=== PATIENT | female | born 1950 | race Caucasian/White ===

== ENCOUNTER 2016-07-27 05:46 | Inpatient (IN) | payer MEDICARE ==
[~2016-07-27] VITALS: Ht 154.9 cm; Wt 80.6 kg
[~2016-07-27 05:46] MED LIST: ALPR-475 PO; AMLO5TAB4 PO; GABA100C8 PO; HYDR25TA6 PO; LAMO100T PO; METO50TA82 PO; OMEP20TA62 PO; SODI1TAB PO
[2016-07-27] MEDS ORDERED: TRANEXAMIC ACID 100 MG/ML, 10ML ONE (06:27)
[2016-07-27] MEDS ORDERED: BUPIVACAINE/PF-EPI 0.5% 1:200K ONE (06:28)
[2016-07-27 07:34] VITALS: BP 123/69
[2016-07-27] MEDS ORDERED: LACTATED RINGERS 1,000 ML IV SCH (07:34)
[2016-07-27] MEDS ORDERED: VANCOMYCIN PMX 1GM/200ML 200 ML IV STA (07:48)
[2016-07-27] MEDS ORDERED: CEFAZOLIN 1,000 MG IM STA (07:48)
[2016-07-27] MEDS ORDERED: FENTANYL PF 250 MCG/5ML ONE ×2 (07:49→10:55)
[2016-07-27] MEDS ORDERED: MIDAZOLAM 1 MG/ML, 2ML ONE (07:50)
[2016-07-27] MEDS ORDERED: PROPOFOL 10 MG/ML, 20ML ONE (08:00)
[2016-07-27] MEDS ORDERED: LIDOCAINE 1%, 2ML SQ PRN (08:00)
[2016-07-27] MEDS ORDERED: NEOSTIGMINE 1 MG/ML, 10ML ONE (08:00)
[2016-07-27] MEDS ORDERED: GLYCOPYRROLATE 0.2MG/1ML ONE (08:00)
[2016-07-27] MEDS ORDERED: CEFAZOLIN 1,000 MG ONE (08:00)
[2016-07-27] MEDS ORDERED: DEXAMETHASONE 4 MG/ML, 1ML ONE (08:00)
[2016-07-27] MEDS ORDERED: ROCURONIUM 10 MG/ML ONE (08:00)
[2016-07-27] MEDS ORDERED: ONDANSETRON 2MG/ML, 2ML ONE (08:00)
[2016-07-27] MEDS ORDERED: VANCOMYCIN 1,000 MG ONE (09:36)
[2016-07-27] MEDS ORDERED: ONDANSETRON 2MG/ML, 2ML IVPush PRN (10:00)
[2016-07-27] MEDS ORDERED: FENTANYL PF 100 MCG/2ML IV PRN (10:00)
[2016-07-27] MEDS ORDERED: ACETAMINOPHEN 325 MG TABLET PO PRN (10:00)
[2016-07-27] MEDS ORDERED: OXYcodone 5 MG/5 ML ORAL.SOL UDC PO PRN (10:00)
[2016-07-27] MEDS ORDERED: LABETALOL 5MG/ML, 20ML IV PRN (10:00)
[2016-07-27] MEDS ORDERED: MEPERIDINE/PF 25MG/0.5ML IVPush PRN (10:00)
[2016-07-27] MEDS ORDERED: HYDROmorphone 2 MG/ML, 1ML ONE (10:22)
[2016-07-27] MEDS ORDERED: OXYcodone 5 MG/5 ML ORAL.SOL UDC ONE (10:22)
[2016-07-27] MEDS: HYDROmorphone 1 MG/ML, 1ML IV PRN ×4 (10:35→11:16)
[2016-07-27] MEDS ORDERED: KETOROLAC 30 MG/1 ML ONE (11:12)
[2016-07-27] MEDS ORDERED: KETOROLAC 30 MG/1 ML IVPush PRN (11:30)
[2016-07-27] MEDS ORDERED: SENNA/DOCUSATE TABLET PO PRN (12:30)
[2016-07-27] MEDS ORDERED: ONDANSETRON ODT 4 MG PO PRN ×2 (12:30→12:40)
[2016-07-27] MEDS ORDERED: ALUMINUM/MAG/SIMETHICONE 30 ML UDC PO PRN (12:30)
[2016-07-27] MEDS ORDERED: SCOPOLAMINE PATCH, 1.5MG PATCH.TD72 TD SCH ×2 (12:30→12:41)
[2016-07-27] MEDS ORDERED: DIPHENHYDRAMINE PO (12:30)
[2016-07-27] MEDS ORDERED: ONDANSETRON 2MG/ML, 2ML IV PRN ×3 (12:30→12:40)
[2016-07-27] MEDS ORDERED: BISACODYL 10 MG SUPP PR PRN (12:30)
[2016-07-27] MEDS ORDERED: KETOROLAC 30 MG/1 ML IV PRN (12:30)
[2016-07-27] MEDS ORDERED: MAGNESIUM HYDROXIDE 8%, 30ML UDC PO PRN (12:30)
[2016-07-27] MEDS ORDERED: DIAZEPAM 5 MG TABLET PO PRN (12:30)
[2016-07-27] MEDS ORDERED: ZOLPIDEM 5MG TABLET PO PRN (12:30)
[2016-07-27] MEDS ORDERED: morphine SULFATE 10 MG/ML, 1ML IV PRN (12:30)
[2016-07-27] MEDS: ACETAMINOPHEN 500 MG TABLET PO PRN (12:57)
[2016-07-27] MEDS ORDERED: PROMETHAZINE 25 MG SUPP PR PRN (13:00)
[2016-07-27] MEDS ORDERED: OXYcodone IR 5MG TABLET PO PRN (13:00)
[2016-07-27] MEDS ORDERED: TRANEXAMIC ACID 1,000 MG in SODIUM CHLORIDE 0.9% 100 ML IV ONE (13:00)
[2016-07-27] MEDS ORDERED: DEXAMETHASONE 4 MG/ML, 5ML IV PRN (13:00)
[2016-07-27 13:05] VITALS: BP 104/43
[2016-07-27] MEDS: NS + 20MEQ KCL 1,000 ML IV SCH ×2 (13:41→22:30)
[2016-07-27] MEDS: GABAPENTIN 400 MG CAPSULE PO SCH ×2 (15:12→20:52)
[2016-07-27] MEDS: OXYcodone IR 5MG TABLET PO PRN ×2 (15:50→20:52)
[2016-07-27] MEDS ORDERED: CEFAZOLIN PMX 2GM/100ML 100 ML IVPB SCH (16:00)
[2016-07-27] MEDS: METOPROLOL TARTRATE 50 MG TABLET PO SCH (18:14)
[2016-07-27 18:49] VITALS: BP 118/70
[2016-07-27] MEDS: DOCUSATE 100 MG CAPSULE PO SCH (20:52)
[2016-07-27] MEDS: SODIUM CHLORIDE FLUSH 10ML SYR IVF SCH (20:52)
[2016-07-27] MEDS ORDERED: CEFAZOLIN PMX 2GM/50ML 50 ML IVPB SCH (21:34)
[2016-07-27] MEDS: LAMOTRIGINE 100 MG TABLET PO SCH (22:39)
[2016-07-27 23:52] VITALS: BP 122/77
[2016-07-28] MEDS ORDERED: CEFAZOLIN PMX 2GM/50ML 50 ML IVPB SCH
[2016-07-28] MEDS: OXYcodone IR 5MG TABLET PO PRN ×7 (00:20→22:58)
[2016-07-28 03:50] VITALS: BP 140/79
[2016-07-28] MEDS: GABAPENTIN 400 MG CAPSULE PO SCH ×4 (05:59→23:00)
[2016-07-28] MEDS: METOPROLOL TARTRATE 50 MG TABLET PO SCH ×2 (05:59→18:00)
[2016-07-28] MEDS: ASPIRIN 325 MG TABLET EC PO SCH ×2 (05:59→22:59)
[2016-07-28 07:43] VITALS: BP 124/66
[2016-07-28] MEDS: NS + 20MEQ KCL 1,000 ML IV SCH ×2 (07:57→16:50)
[2016-07-28] MEDS: OMEPRAZOLE 20 MG CAPSULE.DR PO SCH (07:57)
[2016-07-28] MEDS: LAMOTRIGINE 100 MG TABLET PO SCH ×2 (07:58→22:58)
[2016-07-28] MEDS: DOCUSATE 100 MG CAPSULE PO SCH ×2 (07:58→22:59)
[2016-07-28] MEDS: HYDROCHLOROTHIAZIDE 25 MG TABLET PO SCH (07:58)
[2016-07-28] MEDS: SODIUM CHLORIDE 1 GM TABLET PO SCH (07:59)
[2016-07-28] MEDS: AMLODIPINE 5 MG TABLET PO SCH (07:59)
[2016-07-28] MEDS: SODIUM CHLORIDE FLUSH 10ML SYR IVF SCH ×2 (08:01→23:00)
[2016-07-28 13:18] VITALS: BP 93/53
[2016-07-28] MEDS: ACETAMINOPHEN 500 MG TABLET PO PRN ×2 (15:21→22:57)
[2016-07-28 20:53] VITALS: BP 133/72
[2016-07-29] MEDS: OXYcodone IR 5MG TABLET PO PRN ×4 (02:15→12:01)
[2016-07-29 02:20] VITALS: BP 124/70
[2016-07-29] MEDS: NS + 20MEQ KCL 1,000 ML IV SCH (04:30)
[2016-07-29] MEDS: ACETAMINOPHEN 500 MG TABLET PO PRN (06:06)
[2016-07-29] MEDS: METOPROLOL TARTRATE 50 MG TABLET PO SCH (06:06)
[2016-07-29] MEDS: GABAPENTIN 400 MG CAPSULE PO SCH ×2 (06:09→10:58)
[2016-07-29 08:00] VITALS: BP 111/57
[2016-07-29] MEDS: OMEPRAZOLE 20 MG CAPSULE.DR PO SCH (08:18)
[2016-07-29] MEDS: LAMOTRIGINE 100 MG TABLET PO SCH (08:18)
[2016-07-29] MEDS: ASPIRIN 325 MG TABLET EC PO SCH (08:18)
[2016-07-29] MEDS: SODIUM CHLORIDE FLUSH 10ML SYR IVF SCH (08:18)
[2016-07-29] MEDS: DOCUSATE 100 MG CAPSULE PO SCH (08:18)
[2016-07-29] MEDS: HYDROCHLOROTHIAZIDE 25 MG TABLET PO SCH (08:18)
[2016-07-29] MEDS: SODIUM CHLORIDE 1 GM TABLET PO SCH (08:18)
[2016-07-29] MEDS: AMLODIPINE 5 MG TABLET PO SCH (08:19)
[2016-07-29] MEDS ORDERED: CEPH-368 PO (08:33)
[2016-07-29] MEDS ORDERED: ASPI-647 PO (08:33)
[2016-07-29] MEDS ORDERED: TRAM50TA2 PO (08:34)
[2016-07-29] MEDS ORDERED: OXYC10TA6 PO (08:35)
[2016-07-29 11:45] VITALS: BP 116/53
== END 2016-07-29 14:45 | disposition home health service (06) | DRG 470 ==
LOC: ORIP 05:46 → 4NOR 11:41
PROVIDERS: ADMIT Orthopaedic Surgery Orthopaedic Surgery of the Spine; ATTEND Orthopaedic Surgery Orthopaedic Surgery of the Spine
PROC: 0SRD0J9 Replacement of Left Knee Joint with Synthetic Substitute, Cemented, Open Approach (ICD-10-PCS; principal; 2016-07-27 08:00)
DX: M17.12 Unilateral primary osteoarthritis, left knee (principal); I10 Essential (primary) hypertension; E78.5 Hyperlipidemia, unspecified; Z90.49 Acquired absence of other specified parts of digestive tract; Z90.710 Acquired absence of both cervix and uterus
CPT/HCPCS: 36415; 85025; C1713; J0690; J1100; J1170; J1885; J2250; J2405; J2704; J2710; J3010; J3370; J3480; J3490; C1776; J7120

== ENCOUNTER 2016-08-15 20:16 | Inpatient (IN) | payer MEDICARE ==
[~2016-08-15] VITALS: Ht 154.9 cm; Wt 84.5 kg
[~2016-08-15 20:16] MED LIST changes: +ASPI-647 PO; +CEPH-368 PO; +GABA-826 PO; -GABA100C8 PO; +OXYC10TA6 PO; +TRAM50TA2 PO
[2016-08-15 21:15] LABS: BLOOD UREA NITROGEN 10 mg/dL (7-18)
[2016-08-15] MEDS ORDERED: GABA800T2 PO (21:25)
[2016-08-15] MEDS ORDERED: LORA10TA3 PO (21:25)
[2016-08-15] MEDS ORDERED: ALEN70TA5 PO (21:25)
[2016-08-15] MEDS ORDERED: OXYC20TA2 PO (21:25)
[2016-08-15] MEDS ORDERED: ONDA-40 PO (21:25)
[2016-08-15] MEDS ORDERED: OMEP-110 PO (21:25)
[2016-08-15] MEDS ORDERED: ALPR2TAB2 PO (21:25)
[2016-08-15] MEDS ORDERED: ONDANSETRON 2MG/ML, 2ML IVPush ONE (21:30)
[2016-08-15] MEDS ORDERED: SODIUM CHLORIDE 0.9% 1,000ML IVBOLUS ONE (21:30)
[2016-08-15] MEDS ORDERED: VANCOMYCIN PER PHARMACY IV ONE (21:30)
[2016-08-15] MEDS ORDERED: SODIUM CHLORIDE FLUSH 10ML SYR IVF ONE (21:30)
[2016-08-15] MEDS ORDERED: CEFAZOLIN PMX 1GM/50ML 50 ML IVPB ONE (21:30)
[2016-08-15] MEDS ORDERED: MORPHINE SULFATE 4 MG/ML, 1ML IV PRN (21:30)
[2016-08-15] MEDS ORDERED: ONDANSETRON 2MG/ML, 2ML ONE (22:19)
[2016-08-15] MEDS ORDERED: CEFAZOLIN PMX 1GM/50ML 50 ML ONE (22:19)
[2016-08-15] MEDS ORDERED: MORPHINE SULFATE 4 MG/ML, 1ML ONE (22:19)
[2016-08-15] MEDS ORDERED: CLIN300C93 PO (23:03)
[2016-08-16] MEDS ORDERED: VANCOMYCIN PER PHARMACY MC PRN
[2016-08-16] MEDS ORDERED: PHARMACOKINETIC MONITORING MC PRN (00:30)
[2016-08-16 00:40] VITALS: BP 131/82
[2016-08-16] MEDS: ASPIRIN 325 MG TABLET EC PO SCH ×3 (00:55→21:34)
[2016-08-16] MEDS: VANCOMYCIN 1,600 MG in SODIUM CHLORIDE 0.9% 250 ML IV SCH (00:55)
[2016-08-16] MEDS: GABAPENTIN 400 MG CAPSULE PO SCH ×6 (00:56→21:35)
[2016-08-16] MEDS: ALPRazolam 1MG TABLET PO SCH ×6 (00:58→21:35)
[2016-08-16] MEDS: SODIUM CHLORIDE 0.9% 1,000 ML IV SCH ×2 (01:13→11:07)
[2016-08-16] MEDS ORDERED: hydrALAzine 20 MG/ML, 1ML IVPush PRN (01:30)
[2016-08-16] MEDS ORDERED: POTASSIUM CHLORIDE 20 MEQ TAB.ER.PRT PO ONE (01:30)
[2016-08-16] MEDS: [UNRECOGNIZED DRUG - REMARK] MC SCH ×2 (01:57→09:30)
[2016-08-16] MEDS: HEPARIN 5,000 UNITS/ML, 1ML SQ SCH ×3 (02:04→17:11)
[2016-08-16 03:07] VITALS: BP 96/50
[2016-08-16] MEDS: MORPHINE SULFATE 4 MG/ML, 1ML IVPush PRN ×2 (03:25→09:32)
[2016-08-16] MEDS: NS + 20MEQ KCL 1,000 ML IV SCH ×2 (05:54→17:10)
[2016-08-16] MEDS: CEFAZOLIN PMX 1GM/50ML 50 ML IV SCH ×3 (06:06→21:34)
[2016-08-16 06:57] VITALS: BP 148/68
[2016-08-16] MEDS: HYDROCHLOROTHIAZIDE 25 MG TABLET PO SCH (09:00)
[2016-08-16] MEDS: OMEPRAZOLE 20 MG CAPSULE.DR PO SCH (09:00)
[2016-08-16] MEDS: AMLODIPINE 5 MG TABLET PO SCH (09:00)
[2016-08-16] MEDS: SODIUM CHLORIDE 1 GM TABLET PO SCH (09:00)
[2016-08-16] MEDS: LORATADINE 10 MG TABLET PO SCH (09:00)
[2016-08-16 12:43] LABS: BLOOD UREA NITROGEN 6 mg/dL (7-18)
[2016-08-16] MEDS: POTASSIUM CHLORIDE 20 MEQ TAB.ER.PRT PO ONE ×2 (13:00→17:10)
[2016-08-16 14:20] VITALS: BP 123/70
[2016-08-16] MEDS ORDERED: BACITRACIN OINT 500U/GM, 15 GM TP PRN (18:00)
[2016-08-16 19:40] VITALS: BP 136/75
[2016-08-17] VITALS (7 sets, daily range): BP systolic 120–194; BP diastolic 53–92
[2016-08-17] MEDS: VANCOMYCIN 1,600 MG in SODIUM CHLORIDE 0.9% 250 ML IV SCH (00:35)
[2016-08-17] MEDS: HEPARIN 5,000 UNITS/ML, 1ML SQ SCH ×3 (02:14→17:18)
[2016-08-17] MEDS: CEFAZOLIN PMX 1GM/50ML 50 ML IV SCH ×3 (05:42→22:07)
[2016-08-17] MEDS: NS + 20MEQ KCL 1,000 ML IV SCH ×2 (05:42→17:20)
[2016-08-17] MEDS: GABAPENTIN 400 MG CAPSULE PO SCH ×4 (05:48→22:06)
[2016-08-17] MEDS: ALPRazolam 1MG TABLET PO SCH ×4 (05:48→22:06)
[2016-08-17 05:56] LABS: BLOOD UREA NITROGEN 3 mg/dL (7-18)
[2016-08-17] MEDS: ASPIRIN 325 MG TABLET EC PO SCH ×2 (07:28→22:06)
[2016-08-17] MEDS: AMLODIPINE 5 MG TABLET PO SCH (07:28)
[2016-08-17] MEDS: OMEPRAZOLE 20 MG CAPSULE.DR PO SCH (07:28)
[2016-08-17] MEDS: HYDROCHLOROTHIAZIDE 25 MG TABLET PO SCH (07:28)
[2016-08-17] MEDS: LORATADINE 10 MG TABLET PO SCH (07:28)
[2016-08-17] MEDS: SODIUM CHLORIDE 1 GM TABLET PO SCH (07:29)
[2016-08-17] MEDS: MORPHINE SULFATE 4 MG/ML, 1ML IVPush PRN ×3 (10:23→22:06)
[2016-08-17] MEDS ORDERED: BACITRACIN OINT 500U/GM, 15 GM TP PRN (10:30)
[2016-08-17] MEDS ORDERED: BISACODYL 10 MG SUPP PR PRN (12:00)
[2016-08-17] MEDS ORDERED: MIDAZOLAM 1 MG/ML, 2ML ONE (14:19)
[2016-08-17] MEDS ORDERED: FENTANYL PF 250 MCG/5ML ONE (14:19)
[2016-08-17] MEDS ORDERED: VANCOMYCIN 1,000 MG ONE (14:39)
[2016-08-17] MEDS ORDERED: TRANEXAMIC ACID 100 MG/ML, 10ML ONE (14:40)
[2016-08-17] MEDS ORDERED: BUPIVACAINE/PF-EPI 0.5% 1:200K ONE (14:40)
[2016-08-17] MEDS ORDERED: OMNIPAQUE 350 MG/ML, 100ML BOTTLE ONE (17:02)
[2016-08-17 18:13] LABS: ASPARTATE AMINO TRANSFERASE 29 U/L (15-37); BLOOD UREA NITROGEN 2 mg/dL (7-18)
[2016-08-17 18:18] LABS: IS PT STATUS REG ER OR PRE ER? NO
[2016-08-17] MEDS: ALBUTEROL/IPRATROPIUM 2.5MG/0.5MG, 3 ML NPPB SCH (20:00)
[2016-08-17] MEDS: ACETAMINOPHEN 325 MG TABLET PO PRN (20:43)
[2016-08-17] MEDS ORDERED: HEPARIN 5,000 UNITS/ML, 1ML IV ONE (21:00)
[2016-08-17] MEDS: GUAIFENESIN 100 MG/5 ML, 10ML UDC PO PRN (22:06)
[2016-08-18] MEDS: HEPARIN 25,000 UNITS/500ML PMX 500 ML IV PRN (00:27)
[2016-08-18] MEDS: VANCOMYCIN 1,600 MG in SODIUM CHLORIDE 0.9% 250 ML IV SCH (00:41)
[2016-08-18 02:57] VITALS: BP 104/62
[2016-08-18] MEDS: GUAIFENESIN 100 MG/5 ML, 10ML UDC PO PRN (05:17)
[2016-08-18] MEDS: CEFAZOLIN PMX 1GM/50ML 50 ML IV SCH ×3 (05:17→22:09)
[2016-08-18] MEDS: ALPRazolam 1MG TABLET PO SCH ×4 (05:17→20:05)
[2016-08-18] MEDS: GABAPENTIN 400 MG CAPSULE PO SCH ×4 (05:17→20:06)
[2016-08-18] MEDS: MORPHINE SULFATE 4 MG/ML, 1ML IVPush PRN ×2 (06:08→17:24)
[2016-08-18 06:15] LABS: BLOOD UREA NITROGEN 3 mg/dL (7-18)
[2016-08-18 06:30] VITALS: BP 115/68
[2016-08-18] MEDS: ALBUTEROL/IPRATROPIUM 2.5MG/0.5MG, 3 ML NPPB SCH ×4 (07:05→20:00)
[2016-08-18] MEDS: ASPIRIN 325 MG TABLET EC PO SCH ×2 (08:09→20:05)
[2016-08-18] MEDS: NS + 20MEQ KCL 1,000 ML IV SCH (08:09)
[2016-08-18] MEDS: AMLODIPINE 5 MG TABLET PO SCH (08:09)
[2016-08-18] MEDS: LORATADINE 10 MG TABLET PO SCH (08:09)
[2016-08-18] MEDS: HYDROCHLOROTHIAZIDE 25 MG TABLET PO SCH (08:09)
[2016-08-18] MEDS: SODIUM CHLORIDE 1 GM TABLET PO SCH (08:09)
[2016-08-18] MEDS: OMEPRAZOLE 20 MG CAPSULE.DR PO SCH (08:09)
[2016-08-18] MEDS ORDERED: POTASSIUM CHLORIDE 20 MEQ TAB.ER.PRT PO SCH (11:30)
[2016-08-18 12:30] VITALS: BP 125/57
[2016-08-18] MEDS ORDERED: FUROSEMIDE 20 MG/2 ML IV ONE (14:00)
[2016-08-18] MEDS: HEPARIN 5,000 UNITS/ML, 1ML IV PRN (14:47)
[2016-08-18 18:22] VITALS: BP 125/65
[2016-08-19] MEDS: ACETAMINOPHEN 325 MG TABLET PO PRN (00:04)
[2016-08-19 00:15] VITALS: BP 147/75
[2016-08-19] MEDS ORDERED: DIPHENHYDRAMINE 25 MG CAPSULE PO PRN (00:30)
[2016-08-19] MEDS ORDERED: VANCOMYCIN 1,600 MG in SODIUM CHLORIDE 0.9% 250 ML IV SCH ×2 (00:30→19:00)
[2016-08-19] MEDS: HEPARIN 25,000 UNITS/500ML PMX 500 ML IV PRN (02:15)
[2016-08-19] MEDS: GABAPENTIN 400 MG CAPSULE PO SCH ×4 (05:22→20:29)
[2016-08-19] MEDS: ALPRazolam 1MG TABLET PO SCH ×4 (05:22→20:28)
[2016-08-19] MEDS: CEFAZOLIN PMX 1GM/50ML 50 ML IV SCH ×2 (05:22→14:28)
[2016-08-19 06:18] LABS: BLOOD UREA NITROGEN 3 mg/dL (7-18)
[2016-08-19] MEDS: ALBUTEROL/IPRATROPIUM 2.5MG/0.5MG, 3 ML NPPB SCH ×4 (06:45→19:50)
[2016-08-19] MEDS ORDERED: MAGNESIUM SULFATE PMX 4GM/100M 100 ML IV ONE (07:00)
[2016-08-19 07:10] VITALS: BP 158/80
[2016-08-19] MEDS: HEPARIN 5,000 UNITS/ML, 1ML IV PRN (08:31)
[2016-08-19] MEDS: SODIUM CHLORIDE 1 GM TABLET PO SCH (08:34)
[2016-08-19] MEDS: OMEPRAZOLE 20 MG CAPSULE.DR PO SCH (08:34)
[2016-08-19] MEDS: LORATADINE 10 MG TABLET PO SCH (08:34)
[2016-08-19] MEDS: POTASSIUM CHLORIDE 20 MEQ TAB.ER.PRT PO SCH ×2 (08:34→20:29)
[2016-08-19] MEDS: AMLODIPINE 5 MG TABLET PO SCH (08:34)
[2016-08-19] MEDS: HYDROCHLOROTHIAZIDE 25 MG TABLET PO SCH (08:34)
[2016-08-19] MEDS: APIXABAN 5 MG TABLET PO SCH ×2 (11:32→22:28)
[2016-08-19] MEDS: FUROSEMIDE 40 MG TABLET PO SCH (11:33)
[2016-08-19 13:25] VITALS: BP 133/70
[2016-08-19] MEDS ORDERED: VANCOMYCIN PER PHARMACY MC PRN (13:30)
[2016-08-19] MEDS ORDERED: POTASSIUM CHLORIDE 20 MEQ TAB.ER.PRT PO ONE (14:30)
[2016-08-19] MEDS: AMOXICILLIN/CLAV 500-125MG TABLET PO SCH ×2 (15:54→22:28)
[2016-08-19 18:55] VITALS: BP 161/92
[2016-08-19] MEDS: GUAIFENESIN 100 MG/5 ML, 10ML UDC PO PRN (20:28)
[2016-08-19] MEDS: DOXYCYCLINE 100MG TABLET PO SCH (20:29)
[2016-08-20 01:53] VITALS: BP 151/81
[2016-08-20 04:59] LABS: BLOOD UREA NITROGEN 3 mg/dL (7-18)
[2016-08-20] MEDS: GABAPENTIN 400 MG CAPSULE PO SCH (06:00)
[2016-08-20] MEDS: GUAIFENESIN 100 MG/5 ML, 10ML UDC PO PRN (06:00)
[2016-08-20] MEDS: ALPRazolam 1MG TABLET PO SCH (06:00)
[2016-08-20] MEDS: AMLODIPINE 5 MG TABLET PO SCH (08:55)
[2016-08-20] MEDS: LORATADINE 10 MG TABLET PO SCH (08:59)
[2016-08-20] MEDS: HYDROCHLOROTHIAZIDE 25 MG TABLET PO SCH (08:59)
[2016-08-20] MEDS: APIXABAN 5 MG TABLET PO SCH (09:00)
[2016-08-20] MEDS: FUROSEMIDE 40 MG TABLET PO SCH (09:00)
[2016-08-20] MEDS: POTASSIUM CHLORIDE 20 MEQ TAB.ER.PRT PO SCH (09:00)
[2016-08-20] MEDS: OMEPRAZOLE 20 MG CAPSULE.DR PO SCH (09:00)
[2016-08-20] MEDS ORDERED: SODIUM CHLORIDE 1 GM TABLET PO SCH (09:00)
[2016-08-20] MEDS: DOXYCYCLINE 100MG TABLET PO SCH (09:01)
[2016-08-20] MEDS: AMOXICILLIN/CLAV 500-125MG TABLET PO SCH (13:50)
[2016-08-21 14:46] VITALS: BP 108/69
[2016-08-26] MEDS ORDERED: APIXABAN 5 MG TABLET PO SCH (09:00)
== END 2016-08-20 18:00 | disposition home or self-care (01) | DRG 919 ==
LOC: ED 21:45 → EDIP 21:59 → 3NE 23:59 → 4EST 08-17 19:45 → DCLOUNGE 08-20 15:22
PROVIDERS: ADMIT Internal Medicine; ATTEND Internal Medicine
DX: T81.31XA Disruption of external operation (surgical) wound, not elsewhere classified, initial encounter (principal); I26.99 Other pulmonary embolism without acute cor pulmonale; L03.116 Cellulitis of left lower limb; J98.11 Atelectasis; E87.1 Hypo-osmolality and hyponatremia; E44.0 Moderate protein-calorie malnutrition; J81.1 Chronic pulmonary edema; D64.9 Anemia, unspecified; G62.9 Polyneuropathy, unspecified; F41.9 Anxiety disorder, unspecified; F32.9 Major depressive disorder, single episode, unspecified; M19.90 Unspecified osteoarthritis, unspecified site; J44.9 Chronic obstructive pulmonary disease, unspecified; M25.462 Effusion, left knee; E66.9 Obesity, unspecified; E87.6 Hypokalemia; E87.8 Other disorders of electrolyte and fluid balance, not elsewhere classified; G89.11 Acute pain due to trauma; Z96.653 Presence of artificial knee joint, bilateral; W18.39XA Other fall on same level, initial encounter; Y93.89 Activity, other specified; Z87.891 Personal history of nicotine dependence; Z81.8 Family history of other mental and behavioral disorders; Z68.35 Body mass index [BMI] 35.0-35.9, adult; Y92.098 Other place in other non-institutional residence as the place of occurrence of the external cause; Y99.8 Other external cause status; Z88.2 Allergy status to sulfonamides; R00.0 Tachycardia, unspecified
CPT/HCPCS: 36415; 71010; 71275; 80048; 80053; 80202; 82040; 83605; 83735; 83930; 83935; 84132; 84145; 84300; 84484; 85025; 85520; 85610; 85730; 87040; 93005; 93306; 94640; 96374; 96375; J0690; J1644; J2250; J2405; J3010; J3370; J3480; J7620; Q9967; J0360; J1940; J3475; J7030; J7050; Q0163

== ENCOUNTER → 2019-04-09 | Outpatient (CLI) | payer MEDICARE ==
[~2019-04-09] MED LIST changes: +ALEN70TA6 PO; -ALPR-475 PO; +ALPR0.5T7 PO; +ALPR2TAB2 PO; +CLIN300C8 PO; +GABA800T5 PO; +LORA-247 PO; +OMEP-110 PO; +ONDA8TAB15 PO; +OXYC20TA2 PO
== END | disposition home or self-care (01) ==
LOC: STAR 15:09
PROVIDERS: ATTEND Orthopaedic Surgery Orthopaedic Surgery of the Spine
DX: Z01.818 Encounter for other preprocedural examination (principal); M23.8X9 Other internal derangements of unspecified knee; T84.84XA Pain due to internal orthopedic prosthetic devices, implants and grafts, initial encounter; X58.XXXA Exposure to other specified factors, initial encounter; Y93.89 Activity, other specified; Y92.89 Other specified places as the place of occurrence of the external cause; Y99.8 Other external cause status
CPT/HCPCS: 93005

== ENCOUNTER → 2020-01-28 | Outpatient (CLI) | payer MEDICARE ==
[~2020-01-28] MED LIST changes: -ALEN70TA6 PO; +ALEN70TA66 PO; +IBUP-1221 PO; -LAMO100T PO; +LAMO100T8 PO; -ONDA8TAB15 PO; +ONDA8TAB18 PO; +alprazolam PO
[2020-01-28 10:32] LABS: BASOPHILS % (AUTO) 0 % (0-1); EOSINOPHILS % (AUTO) 1 % (1-7); LYMPHOCYTES % (AUTO) 20 % (22-44); MEAN CORPUSCULAR HEMOGLOBIN 32.6 pg (27.0-34.8); MEAN CORPUSCULAR HGB CONC 33.6 g/dL (32.4-35.8); MEAN PLATELET VOLUME 6.4 fL (7.4-10.4); MONOCYTES % (AUTO) 7 % (2-9); NEUTROPHILS % (AUTO) 72 % (42-75); PLATELET COUNT 250 x10^3/uL (130-400); RED CELL DISTRIBUTION WIDTH 13.1 % (9.6-15.2)
[2020-01-28 10:38] LABS: MD NO
[2020-01-28 10:41] LABS: ANION GAP 4 mmol/L (5-15); CALCIUM 9.2 mg/dL (8.5-10.1); CHLORIDE 101 mmol/L (98-107); CREATININE 0.54 mg/dL (0.55-1.02)
[2020-01-28 10:44] LABS: INTERNATIONAL NORMALIZED RATIO 0.94 (0.93-1.1)
[2020-01-28 11:00] LABS: HCT (SEDRATE) 41.8 % (34.6-47.8)
== END | disposition home or self-care (01) ==
LOC: STAR 09:11
PROVIDERS: ATTEND Orthopaedic Surgery Orthopaedic Surgery of the Spine
DX: Z01.812 Encounter for preprocedural laboratory examination (principal); Z20.828 Contact with and (suspected) exposure to other viral communicable diseases
CPT/HCPCS: 36415; 71046; 80048; 83036; 85025; 85610; 85651; 85730; 87635; 93005

== ENCOUNTER 2020-02-01 09:46 | Day surgery (SDC) | payer MEDICARE ==
[~2020-02-01] VITALS: Ht 154.9 cm; Wt 63.6 kg
[2020-02-01] MEDS ORDERED: VANCOMYCIN PMX 1GM/200ML 200 ML IV STA (10:01)
[2020-02-01] MEDS ORDERED: CHLORHEXIDINE 15 ML UDC MM STA (10:02)
[2020-02-01] MEDS ORDERED: LACTATED RINGERS 1,000 ML IV SCH (10:02)
[2020-02-01 10:04] VITALS: BP 157/83
[2020-02-01] MEDS ORDERED: CHLORHEXIDINE 15 ML UDC ONE (10:06)
[2020-02-01] MEDS ORDERED: BUPIVACAINE/PF 0.5% ONE (10:38)
[2020-02-01] MEDS ORDERED: EPINEPHRINE 1 MG/ML, 1ML ONE (10:39)
[2020-02-01] MEDS ORDERED: VANCOMYCIN 1,000 MG ONE (10:39)
[2020-02-01] MEDS ORDERED: TRANEXAMIC ACID 100 MG/ML, 10ML ONE (10:39)
[2020-02-01] MEDS ORDERED: BACITRACIN 50,000 UNIT ONE (10:40)
[2020-02-01] MEDS ORDERED: FENTANYL PF 100 MCG/2ML ONE (10:45)
[2020-02-01] MEDS ORDERED: MIDAZOLAM 1 MG/ML, 2ML ONE (10:45)
[2020-02-01] MEDS ORDERED: SUCCINYLCHOLINE 20 MG/ML, 10ML ONE (10:50)
[2020-02-01] MEDS ORDERED: ROCURONIUM 10MG/ML,5ML ONE (10:50)
[2020-02-01] MEDS ORDERED: DEXAMETHASONE 4 MG/ML, 1ML ONE (10:50)
[2020-02-01] MEDS ORDERED: PROPOFOL 10 MG/ML, 20ML ONE (10:50)
[2020-02-01] MEDS ORDERED: GLYCOPYRROLATE 0.2MG/1ML, 5ML ONE (10:50)
[2020-02-01] MEDS ORDERED: CEFAZOLIN 1,000 MG ONE (10:50)
[2020-02-01] MEDS ORDERED: NEOSTIGMINE 1 MG/ML, 10ML ONE (10:50)
[2020-02-01] MEDS ORDERED: ONDANSETRON 2MG/ML, 2ML ONE (10:50)
[2020-02-01] MEDS ORDERED: OXYcodone 5 MG/5 ML ORAL.SOL UDC PO PRN (11:00)
[2020-02-01] MEDS ORDERED: MEPERIDINE/PF 25MG/0.5ML IVPush PRN (11:00)
[2020-02-01] MEDS ORDERED: PROMETHAZINE 25 MG/ML, 1ML IVPush PRN (11:00)
[2020-02-01] MEDS ORDERED: HYDROmorphone 1 MG/ML, 1ML INJ IVPush PRN (11:00)
[2020-02-01] MEDS ORDERED: HYDROcodone/APAP 7.5-325MG/15ML UDC PO PRN (11:00)
[2020-02-01] MEDS ORDERED: FENTANYL PF 100 MCG/2ML IV PRN (11:00)
[2020-02-01] MEDS ORDERED: KETOROLAC 30 MG/1 ML IVPush PRN ×2 (11:00→11:11)
[2020-02-01] MEDS ORDERED: PHENYLEPHRINE 10 MG/ML ONE (11:12)
[2020-02-01] MEDS ORDERED: EPHEDRINE 50 MG/ML, 1ML ONE (11:12)
[2020-02-01] MEDS ORDERED: BUPIVACAINE/PF-EPI 0.5% 1:200K INFIL ONE (11:49)
== END 2020-02-01 14:35 | disposition home or self-care (01) ==
LOC: OUT 09:46
PROVIDERS: ATTEND Orthopaedic Surgery Orthopaedic Surgery of the Spine
DX: T85.840A Pain due to nervous system prosthetic devices, implants and grafts, initial encounter (principal); I10 Essential (primary) hypertension; K21.9 Gastro-esophageal reflux disease without esophagitis; F41.9 Anxiety disorder, unspecified; Z79.1 Long term (current) use of non-steroidal anti-inflammatories (NSAID); Z79.891 Long term (current) use of opiate analgesic; Z79.899 Other long term (current) drug therapy; Z88.2 Allergy status to sulfonamides; Y83.8 Other surgical procedures as the cause of abnormal reaction of the patient, or of later complication, without mention of misadventure at the time of the procedure
CPT/HCPCS: 63662; 63688; 72100; J0171; J0330; J0690; J1100; J2250; J2370; J2405; J2704; J2710; J3010; J3370; J7120